=== PATIENT | female | born 2000 | race Caucasian/White ===

== ENCOUNTER 2019-05-23 05:50 | Day surgery (SDC) | payer OTHER ==
[~2019-05-23 05:50] MED LIST: Buffered Lidocaine 1% SYRIN* 1 ML/SYRINGE INTRADERM ONE
[2019-05-23] MEDS ORDERED: Lactated Ringers 1000 ML Bag* 1,000 ML IV SCH (06:00)
[2019-05-23] MEDS ORDERED: Acetaminophen TAB* 325 MG PO ONE (06:00)
[2019-05-23] MEDS ORDERED: Gabapentin CAP(*) 300 MG PO ONE (06:00)
[2019-05-23] MEDS ORDERED: Famotidine IV* 10 MG/ML 2 ML (20 mg) IV ONE (06:00)
[2019-05-23] MEDS ORDERED: Gabapentin CAP(*) 300 MG ONE (06:30)
[2019-05-23] MEDS ORDERED: ceFAZolin 2 GM in NS PREMIX(*) 2 GM/100 ML BAG IVPB ONE (06:30)
[2019-05-23] MEDS ORDERED: Buffered Lidocaine 1% SYRIN* 1 ML/SYRINGE INTRADERM ONE (06:30)
[2019-05-23] MEDS ORDERED: Acetaminophen TAB* 325 MG ONE (06:30)
[2019-05-23] MEDS ORDERED: Famotidine IV* 10 MG/ML 2 ML (20 mg) ONE (06:30)
[2019-05-23] MEDS ORDERED: Midazolam* 1 MG/ML 2 ML VIAL (2 MG) ONE (07:09)
[2019-05-23] MEDS ORDERED: fentaNYL* 50 MCG/ML 2 ML VIAL (100 MCG VIAL) ONE (07:09)
[2019-05-23] MEDS ORDERED: Propofol* 10 MG/ML 20 ML BTL ONE (07:32)
[2019-05-23] MEDS ORDERED: Ondansetron INJ* 2 MG/ML VIAL ONE ×2 (07:32→10:42)
[2019-05-23] MEDS ORDERED: Ketorolac INJ* 30 MG/ML 1 ML VIAL ONE (07:32)
[2019-05-23] MEDS ORDERED: Dexamethasone IV* 4 MG/ML 1 ML (4 MG) ONE (07:32)
[2019-05-23] MEDS ORDERED: Bupivacaine 0.25% SDV* 30 ML ONE (07:37)
[2019-05-23] MEDS ORDERED: HYDROcodone/ACETAMIN 5-325 MG* 1 TAB PO PRN (07:48)
[2019-05-23] MEDS ORDERED: Naloxone* 0.4 MG/ML 1 ML VIAL IV PRN (07:48)
[2019-05-23] MEDS ORDERED: Ondansetron INJ* 2 MG/ML VIAL IV PRN (07:53)
[2019-05-23] MEDS ORDERED: Scopolamine 1.5 mg* PATCH TRANSDERM PRN (07:53)
[2019-05-23] MEDS ORDERED: diPHENhydraMINE IV* 50 MG/ML 1 ml VIAL (BENADRYL) IV PRN (07:53)
[2019-05-23] MEDS ORDERED: fentaNYL* 50 MCG/ML 2 ML VIAL (100 MCG VIAL) IV PRN ×2 (07:53)
[2019-05-23] MEDS ORDERED: DiMENhydriNATE IV* 50 MG/ML VIAL IV PUSH PRN (07:53)
--- NOTE | 2019-05-23 10:36 | OP ---
Operative Report - Blank - Operative Report Date of Operation: 05/23/19 Note: PATIENT: Sona Jamil DATE OF : 2000 DATE OF SURGERY: 05/23/2019 SURGEON: Victoriano Kendall MD [employer] PANELS DEBURRER: FAMILIA Chatterjee, whos assistance was necessary for positioning, retraction, help with instrumentation, and closure. ANESTHESIOLOGIST: Dr. 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 Both operative and non- operative treatment alternatives were reviewed. Further, the nature and risks of surgery were reviewed in careful detail. Our discussions regarding the risks of surgery included, but were not limited to, infection, wound problems, nerve injury, neuroma, RSD, persistent symptoms, blood clot, need for further surgery , failure of the surgery, and even the remote chance of catastrophic complication. DESCRIPTION OF PROCEDURE: The patient was seen in the preoperative holding unit and informed written consent was obtained. The appropriate extremity was marked. The patient was then brought to the operating room and carefully positioned on the operating room table. Anesthesia was induced. All bony prominences were padded with great care. A well-padded thigh tourniquet was placed. A chlorhexidine based pre- scrub was performed followed by a chloraprep prep and drape in standard sterile fashion. A surgical safety pause was then conducted in which we confirmed the appropriate patient, extremity, planned procedure, availability of equipment, indication and administration of prophylactic antibiotics, and DVT prophylaxis in the form of a compression boot on the non-surgical extremity. I began with an esmarch exsanguination and inflated the tourniquet. I made an approximately 3cm longitudinal incision medial to the extensor hallucis longus tendon centered at the talonavicular joint. I sharply dissected down to the layer of the joint capsule and periosteum. I raised flaps subperiosteally. This exposed the dorsal osteophytes on the navicular. A used a Rongeur to then excise the dorsal osteophytes off the navicular. I then placed a Hintermann retractor to distract open the talonavicular joint. The osteochondral defect was appreciated. It was very small. I used a 0.045 K wire to microfracture the osteochondral defect. I then used a 0.045 K wire to drill holes from dorsally into the navicular bone at the site of the fracture nonunion. Multiple holes were drilled. I was careful not to violate the joint. The wound was copiously irrigated and meticulously closed in layers utilizing 0 Vicryl for the retinacular layer, 3-0 Monocryl and 3-0 Nylon. A sterile dressing was then applied. The patient was then awakened from anesthesia and transferred to the recovery room in stable condition. There were no complications. All needle and sponge counts were correct at the end of the case. ATTESTATION: I attest I was present and scrubbed and performed the critical portions of the procedure myself. POSTOPERATIVE PLAN: She will follow up in 2 weeks for likely suture removal. The plan is for 4 weeks of nonweightbearing in a short boot. She'll continue to use the bone stimulator. She will use aspirin for DVT prophylaxis.
[2019-05-23] MEDS ORDERED: DiMENhydriNATE IV* 50 MG/ML VIAL ONE (11:06)
[2019-05-23 11:47] VITALS: BP 114/67
[2019-05-26] MEDS ORDERED: Scopolamine PATCH Remove* 1 NOTE MISC PATCH OFF ONE (07:55)
== END 2019-05-23 12:16 | disposition home or self-care (01) ==
LOC: OR 05:50
PROVIDERS: ATTEND Orthopaedic Surgery
DX: M84.375A Stress fracture, left foot, initial encounter for fracture (principal)
CPT/HCPCS: 81025; A9270-GY; C1776; J0690; J1100; J1240; J1885; J2250; J2405; J2704; J3010; J3490